=== PATIENT | male | born 1955 | race Caucasian/White ===

== ENCOUNTER 2018-08-27 01:31 | Observation (INO) ==
[2018-08-27] MEDS ORDERED: Sod Chloride 0.9% Inj 1,000 ML IV.SIG ONE (01:51)
--- NOTE | 2018-08-27 02:01 | ED ---
HPI General Chief complaint: Nausea/Vomiting/Diarrhea Stated complaint: Medical Time Seen by Provider: 08/27/18 01:44 Source: patient Mode of arrival: EMS Limitations: no limitations History of Present Illness HPI Narrative: 62-year-old male complains of generalized malaise and weakness, nausea vomiting diarrhea. Patient started having shaking chills, slurred speech , feeling hot and cold, generalized malaise and weakness tonight. Patient started having nausea vomiting diarrhea subsequently. Patient felt better tonight. Patient did not injure himself during the fall. Patient states that he had headache earlier but not now. Patient denies any visual change. Patient denies any neck pain. Patient denies any chest pain or shortness of breath. Patient states that he has mild dry cough. Patient denies abdominal pain. Patient denies any back pain. Patient denies any focal weakness or numbness of the extremity. Patient has history hypertension, diabetes, asthma. MD complaint: Reports nausea, vomiting and diarrhea Onset (ago): hour(s) Description of Vomiting: food contents and watery Description of Diarrhea: watery Associated Abdominal Pain: No Severity: moderate Relieving factors: none Exacerbating factors: none Associated symptoms: Reports cough, malaise and weakness Related Data Home Medications Medication Instructions Recorded Confirmed lisinopril 08/27/18 metformin 1,000 mg PO BID 08/27/18 08/27/18 Allergies Allergy/AdvReac Type Severity Reaction Status Date / Time aspirin Allergy Intermediate Wheezing Verified 08/27/18 01:38 Review of Systems ROS: all other systems reviewed are negative PMFSH Medical History Medical History Asthma (Acute) Back pain (Acute) Chronic hip pain after total replacement of left hip joint (Acute) Diabetes (Acute) HTN (hypertension) (Acute) High cholesterol (Acute) Social History Social History Substance History: No History of Abuse Second Hand Smoke Exposure: No Smoking Status: Never smoker How Often Do You Have a Drink Containing Alcohol: Monthly or less Recent Travel in [facility] within the Last 8 Weeks: No Recent Out of Country Travel within the Last 8 Weeks: No Immunization History Tetanus Immunization: Unsure Hx Influenza Vaccine This Season: Yes Exam Narrative Exam Narrative: GENERAL: Well-nourished, well-developed patient. SKIN: Focused skin assessment warm/dry. HEAD: Normocephalic. EYES: No scleral icterus. No injection or drainage. NECK: Supple, trachea midline. No JVD or lymphadenopathy. CARDIOVASCULAR: Mild tachycardia rate and rhythm without murmurs, gallops, or rubs. RESPIRATORY: Breath sounds equal bilaterally. No accessory muscle use. GASTROINTESTINAL: Abdomen soft, non-tender, nondistended. MUSCULOSKELETAL: No cyanosis, or edema. BACK: Nontender without obvious deformity. No CVA tenderness. Neurologic exam normal. Course Initial Documented Vital Signs Temperature 99.4 F 08/27/18 01:32 Pulse Rate 140 H 08/27/18 01:32 Respiratory Rate 28 H 08/27/18 01:32 Blood Pressure 123/75 08/27/18 01:32 Pulse Oximetry 93 L 08/27/18 01:32 Last Documented Vital Signs Temperature 98.2 F 08/27/18 01:45 Pulse Rate 121 H 08/27/18 03:00 Respiratory Rate 16 08/27/18 03:00 Blood Pressure 110/74 08/27/18 03:00 Pulse Oximetry 94 L 08/27/18 03:00 Medical Decision Making MDM Narrative Medical decision making narrative: 62-year-old male with nausea vomiting diarrhea and general malaise and weakness. Normal saline solution 1 L IV bolus. Zofran 4 mg IV. Medical Screen Exam Complete: Yes Emergency Medical Condition: Yes Differential Diagnosis Differential Diagnosis: Differential diagnosis including gastroenteritis, dehydration, electrolyte imbalance, sepsis. Lab Data Lab results reviewed: Yes I reviewed the patient's lab results. Result diagrams: 08/27/18 02:05 08/27/18 02:05 Lab Results 08/27/18 08/27/18 08/27/18 Range/Units 01:47 02:05 02:05 WBC 10.0 (4.0-11.0) th/mm3 RBC 4.94 (4.50-5.90) mil/mm3 Hgb 14.7 (13.0-17.0) gm/dL Hct 44.3 (39.0-51.0) % MCV 89.8 (80.0-100.0) fL MCH 29.8 (27.0-34.0) pg MCHC 33.2 (32.0-36.0) % RDW 13.4 (11.6-17.2) % Plt Count 199 (150-450) th/mm3 MPV 8.2 (7.0-11.0) fL Neut % (Auto) 95.6 H (16.0-70.0) % Lymph % (Auto) 3.1 L (9.0-44.0) % [place] % (Auto) 0.8 (0.0-8.0) % Eos % (Auto) 0.2 (0.0-4.0) % Baso % (Auto) 0.3 (0.0-2.0) % Neut # (Auto) 9.6 H (1.8-7.7) th/mm3 Lymph # (Auto) 0.3 L (1.0-4.8) th/mm3 [place] # (Auto) 0.1 (0.0-0.9) th/mm3 Eos # (Auto) 0.0 (0.0-0.4) th/mm3 Baso # (Auto) 0.0 (0.0-0.2) th/mm3 WBC Differential . Differential Comment Auto diff final Sodium 142 (136-145) meq/L Potassium 3.6 (3.5-5.1) meq/L Chloride 106 (98-107) meq/L Carbon Dioxide 23.8 (21.0-32.0) meq/L Anion Gap 12 (5-15) meq/L BUN 20 H (7-18) mg/dL Creatinine 1.33 H (0.60-1.30) mg/dL Estimated GFR 55 L (>89) mL/min POC Glucose 296 H (68-110) mg/dl Random Glucose 307 H (74-106) mg/dL Calcium 9.1 (8.5-10.1) mg/dL Total Bilirubin 1.0 (0.2-1.0) mg/dL AST 54 H (15-37) U/L ALT 57 (12-78) U/L Alkaline Phosphatase 82 (45-117) U/L Total Protein 7.5 (6.4-8.2) g/dL Albumin 3.8 (3.4-5.0) g/dL Lipase 102 (73-393) U/L 08/27/18 Range/Units 03:54 WBC (4.0-11.0) th/mm3 RBC (4.50-5.90) mil/mm3 Hgb (13.0-17.0) gm/dL Hct (39.0-51.0) % MCV (80.0-100.0) fL MCH (27.0-34.0) pg MCHC (32.0-36.0) % RDW (11.6-17.2) % Plt Count (150-450) th/mm3 MPV (7.0-11.0) fL Neut % (Auto) (16.0-70.0) % Lymph % (Auto) (9.0-44.0) % [place] % (Auto) (0.0-8.0) % Eos % (Auto) (0.0-4.0) % Baso % (Auto) (0.0-2.0) % Neut # (Auto) (1.8-7.7) th/mm3 Lymph # (Auto) (1.0-4.8) th/mm3 [place] # (Auto) (0.0-0.9) th/mm3 Eos # (Auto) (0.0-0.4) th/mm3 Baso # (Auto) (0.0-0.2) th/mm3 WBC Differential Differential Comment Sodium (136-145) meq/L Potassium (3.5-5.1) meq/L Chloride (98-107) meq/L Carbon Dioxide (21.0-32.0) meq/L Anion Gap (5-15) meq/L BUN (7-18) mg/dL Creatinine (0.60-1.30) mg/dL Estimated GFR (>89) mL/min POC Glucose 248 H (68-110) mg/dl Random Glucose (74-106) mg/dL Calcium (8.5-10.1) mg/dL Total Bilirubin (0.2-1.0) mg/dL AST (15-37) U/L ALT (12-78) U/L Alkaline Phosphatase (45-117) U/L Total Protein (6.4-8.2) g/dL Albumin (3.4-5.0) g/dL Lipase (73-393) U/L Imaging Data Attestation: I personally reviewed and interpreted this imaging study as follows : Radiologist's impression: Chest X-Ray 08/27/18 01:51 CONCLUSION: 1. Patchy right inferior perihilar opacities which may reflect developing airspace disease in the appropriate clinical setting.h Discharge Plan Discharge Disposition Patient Disposition: 30 Still Patient Discharge Details Diagnosis: Pneumonia, Gastroenteritis Physicians Team ED Provider: Lino Reyes Primary Care Provider: [facility]ician 's Attending Provider: Anastacia Singleton Discharge Interventions Interventions: Vital Signs Last Done: 08/27/18 03:00 Status ED Status: Admitted Patient
--- NOTE | 2018-08-27 02:18 | XR ---
EXAM DATE: 08/27/2018 1:51 AM EDT AGE/SEX: 62 years / Male INDICATIONS: Chills and nausea. CLINICAL DATA: This is the patient's initial encounter. Patient reports that signs and symptoms have been present for 1 day and indicates a pain score of 0/10. MEDICAL/SURGICAL HISTORY: None. None. COMPARISON: No prior exams available for comparison. FINDINGS: Patchy right inferior perihilar opacities. The cardiomediastinal contours are unremarkable. Osseous structures are intact. CONCLUSION: 1. Patchy right inferior perihilar opacities which may reflect developing airspace disease in the ap propriate clinical setting.h Electronically signed by: Luis Gomez MD 08/27/2018 2:17 AM EDT
[2018-08-27 02:29] LABS: Alanine Aminotransferase 57 U/L (12-78); Albumin 3.8 g/dL (3.4-5.0); Anion Gap 12 meq/L (5-15); Aspartate Aminotransferase 54 U/L (15-37); Baso % (Auto) 0.3 % (0.0-2.0); Blood Urea Nitrogen 20 mg/dL (7-18); Calcium 9.1 mg/dL (8.5-10.1); Carbon Dioxide 23.8 meq/L (21.0-32.0); Chloride 106 meq/L (98-107); Eos % (Auto) 0.2 % (0.0-4.0); Glomerular Filtration Rate 55 mL/min (>89); Glucose,Random 307 mg/dL (74-106); Hematocrit 44.3 % (39.0-51.0); Hemoglobin 14.7 gm/dL (13.0-17.0); Lipase 102 U/L (73-393); Lymph # (Auto) 0.3 th/mm3 (1.0-4.8); Lymph % (Auto) 3.1 % (9.0-44.0); Mean Corpuscular HGB Conc 33.2 % (32.0-36.0); Mean Corpuscular Hemoglobin 29.8 pg (27.0-34.0); Mean Corpuscular Volume 89.8 fL (80.0-100.0); Mean Platelet Volume 8.2 fL (7.0-11.0); Mono # (Auto) 0.1 th/mm3 (0.0-0.9); Mono % (Auto) 0.8 % (0.0-8.0); Neut # (Auto) 9.6 th/mm3 (1.8-7.7); Neut % (Auto) 95.6 % (16.0-70.0); Platelet Count 199 th/mm3 (150-450); Potassium 3.6 meq/L (3.5-5.1); Red Blood Count 4.94 mil/mm3 (4.50-5.90); Red Cell Distribution Width 13.4 % (11.6-17.2); Sodium 142 meq/L (136-145)
[2018-08-27 02:31] LABS: Alkaline Phosphatase 82 U/L (45-117); Total Protein 7.5 g/dL (6.4-8.2)
[2018-08-27] MEDS ORDERED: Azithromycin 250 MG Tablet PO ONE (02:35)
[2018-08-27] MEDS: Sod Chloride 0.9% Inj 1,000 ML IV.SIG SCH (02:58)
[2018-08-27] MEDS ORDERED: Dextrose 50% in Water 50 ML Vial IV.PUSH PRN (05:07)
[2018-08-27] MEDS ORDERED: Bisacodyl 10 MG Supp RECTAL PRN (05:12)
[2018-08-27] MEDS ORDERED: Acetaminophen 325 MG Tablet PO PRN (05:16)
[2018-08-27] MEDS: Enoxaparin Inj 40 MG/0.4 ML Syringe SQ SCH (05:31)
[2018-08-27] MEDS: Sod Chloride 0.9% Inj 1,000 ML IV.CONT SCH ×3 (05:31→22:23)
[2018-08-27] MEDS: Insulin NovoLOG Aspart Correctional Sugar Inj SQ SCH ×4 (08:44→22:24)
--- NOTE | 2018-08-27 14:11 | P.HP ---
History of Present Illness Primary Care Physician: [facility] Chief Complaint: weakness/cough/nausea/vomiting/diarrhea History of Present Illness: 62-year-old male with history of asthma, DM, HTN, HLD, chronic back pain, presents with acute onset 1 day history of malaise, weakness, cough, nausea/ vomiting, and diarrhea. Patient states he was in his normal state of health yesterday, when all of a sudden at 7:30 PM last night he started to develop significant malaise, fatigue, and uncontrollable chills. He then developed multiple episodes of nausea/vomiting and nonbloody diarrhea x5. Denies any significant abdominal pain. He also reports a recent dry mostly nonproductive cough, associated with shortness of breath and occasional wheezing. He states his took his temperature and it was as low as [id number]. Around midnight, patient agreed to come to the ER. Chest x-ray was significant for pneumonia. He was started on antibiotics. He is now seen in the observation unit, symptoms significantly improved however still feels weak. He does not feel ready for discharge at this time. He denies any other medical complaints including no rhinitis, odynophagia, chest pain, palpitations, or urinary complaints. Review of Systems All other systems reviewed negative except as stated in HPI PMFSH - History History Provided By: Patient - Medical History Medical History: Medical History (Last Reviewed 08/27/18 @ 16:57 by Harini March) Asthma Diabetes Back pain Chronic hip pain after total replacement of left hip joint HTN (hypertension) High cholesterol - Surgical History Surgical History: Surgical History (Last Updated 08/27/18 @ 16:58 by Harini March) History of rhinoplasty History of tonsillectomy History of total left hip arthroplasty - Family History Family History: Family History (Last Updated 08/27/18 @ 16:58 by Harini March) Mother Breast cancer Father CVA (cerebral vascular accident) - Social History I have reviewed the patient's Social History: Yes - Tobacco History Second Hand Smoke Exposure: No Tobacco Use In Past 30 Days: No Smoking Status: Never smoker (except occasional cigar twice a year) - Alcohol History How Often Do You Have a Drink Containing Alcohol: 2 to 4 times a month (1 beer twice a month) - Substance Use History Substance History: No History of Abuse - Travel History Recent Travel in the [facility] Within the Last 8 Weeks: No Recent Travel Out of the Country Within the Last 8 Weeks: No - Immunization History Tetanus Immunization: Unsure Hx Influenza Vaccine This Season: Yes Medications and Allergies Active Medications: Active Medications Acetaminophen (Tylenol) 650 mg PO Q4H PRN PRN Reason: Temp > 100.4 Albuterol (Duoneb Neb (Prn)) 1 ampul NEB Q2HR NEB PRN PRN Reason: SHORTNESS OF BREATH/WHEEZING Albuterol (Duoneb Neb (Anabella)) 1 ampul NEB Q6HR NEB ANABELLA Last Admin: 08/27/18 10:38 Dose: Not Given Bisacodyl (Dulcolax Supp) 10 mg RECTAL DAILY PRN PRN Reason: SEVERE CONSITIPATION Dextrose (D50w Vial) 50 ml IV.PUSH UNSCH PRN PRN Reason: PER HYPOGLYCEMIA PROTOCOL Enoxaparin Sodium (Lovenox Inj) 40 mg SQ Q24H ANABELLA Last Admin: 08/27/18 05:31 Dose: 40 mg Glucagon (Glucagon Inj) 1 mg OTHER PRN PRN PRN Reason: for Hypoglycemia Protocol Sodium Chloride (Ns Inj) 1,000 mls @ 0 mls/hr IV.SIG BOLUS ANABELLA Last Infusion: 08/27/18 03:39 Dose: Infused Sodium Chloride (Ns Inj) 1,000 mls @ 125 mls/hr IV.CONT .Q8H ANABELLA Last Infusion: 08/27/18 13:33 Dose: Infused Ceftriaxone Sodium 1,000 mg/ (Sodium Chloride) 100 mls @ 200 mls/hr IV.SIG Q24H ANABELLA Azithromycin 500 mg/ Sodium (Chloride) 250 mls @ 250 mls/hr IV.SIG Q24H ANABELLA Insulin Aspart (Novolog Insulin Correctional Sugar Inj) 0 unit SQ ACHS AND 3AM ANABELLA; Protocol Last Admin: 08/27/18 13:32 Dose: Not Given Ondansetron HCl (Zofran Inj) 4 mg IV.PUSH Q6H PRN PRN Reason: NAUSEA OR VOMITING Sennosides (Senokot) 17.2 mg PO Q12H PRN PRN Reason: Moderate Constipation Allergies Allergy/AdvReac Type Severity Reaction Status Date / Time aspirin Allergy Intermediate Wheezing Verified 08/27/18 01:38 Home Medications Medication Instructions Recorded Confirmed Type lisinopril 08/27/18 History metformin 1,000 mg PO BID 08/27/18 08/27/18 History Exam Vital signs: Vital Signs 08/27/18 01:32 08/27/18 01:45 08/27/18 02:02 Temperature 99.4 F 98.2 F Pulse Rate 140 H 133 H Respiratory Rate 28 H 20 Blood Pressure 123/75 117/72 Pulse Oximetry 93 L 94 L 94 L 08/27/18 02:03 08/27/18 03:00 08/27/18 05:44 Temperature Pulse Rate 122 H 121 H 114 H Respiratory Rate 16 Blood Pressure 110/74 100/62 Pulse Oximetry 94 L 08/27/18 07:12 08/27/18 11:55 Temperature 97.5 F L 98.3 F Pulse Rate 90 90 Respiratory Rate 20 20 Blood Pressure 99/62 L 103/66 Pulse Oximetry 96 98 Intake & Output 08/26/18 08/27/18 08/27/18 18:59 06:59 18:59 Intake Total 2099 Balance 2099 Weight 86.183 kg Intake: IV 2099 1000 / 1000 NS Inj 1,000 ML @ 125 mls/hr IV 1000 / 1000 .CONT .Q8H [facility] Rx#:[id number] NS Inj 1,000 ML @ Wide Open IV. 1999 SIG BOLUS [facility] Rx#:[id number] Rocephin Inj 1,000 MG In NS Inj 100 / 100 100 ML @ 200 mls/hr IV.SIG ONCE ONE Rx#:[id number] Oral 1000 / 1000 Narrative: GENERAL: Well-nourished, well-developed pleasant middle-age male patient in [facility]. Sitting upright on the side of bed. SKIN: Warm and dry. No rash. HEENT: Normocephalic. Atraumatic. Pupils equal and round. Mucous membranes pink and moist. NECK: Supple. Trachea midline. CARDIOVASCULAR: Mildly tachycardic, regular rhythm. No murmur appreciated. RESPIRATORY: No accessory muscle use. Clear to auscultation. Breath sounds equal bilaterally. GASTROINTESTINAL: Abdomen soft, non-tender, nondistended. Normoactive bowel sounds x4. MUSCULOSKELETAL: No obvious deformities. Extremities without clubbing, cyanosis , or edema. NEUROLOGICAL: Awake and alert. No obvious cranial nerve deficits. Motor grossly within normal limits. Moving all extremities spontaneously. Normal speech. PSYCHIATRIC: Appropriate mood and affect; insight and judgment normal. Results - Labs CBC & Chem 7: 08/27/18 02:05 08/27/18 02:05 Labs: Laboratory Results - last 24 hr 08/27/18 08/27/18 08/27/18 01:47 02:05 02:05 WBC 10.0 RBC 4.94 Hgb 14.7 Hct 44.3 MCV 89.8 MCH 29.8 MCHC 33.2 RDW 13.4 Plt Count 199 MPV 8.2 Neut % (Auto) 95.6 H Lymph % (Auto) 3.1 L [place] % (Auto) 0.8 Eos % (Auto) 0.2 Baso % (Auto) 0.3 Neut # (Auto) 9.6 H Lymph # (Auto) 0.3 L [place] # (Auto) 0.1 Eos # (Auto) 0.0 Baso # (Auto) 0.0 WBC Differential . Differential Comment Auto diff final Sodium 142 Potassium 3.6 Chloride 106 Carbon Dioxide 23.8 Anion Gap 12 BUN 20 H Creatinine 1.33 H Estimated GFR 55 L POC Glucose 296 H Random Glucose 307 H Lactic Acid Calcium 9.1 Total Bilirubin 1.0 AST 54 H ALT 57 Alkaline Phosphatase 82 Total Protein 7.5 Albumin 3.8 Lipase 102 08/27/18 08/27/18 08/27/18 03:54 05:05 08:37 WBC RBC Hgb Hct MCV MCH MCHC RDW Plt Count MPV Neut % (Auto) Lymph % (Auto) [place] % (Auto) Eos % (Auto) Baso % (Auto) Neut # (Auto) Lymph # (Auto) [place] # (Auto) Eos # (Auto) Baso # (Auto) WBC Differential Differential Comment Sodium Potassium Chloride Carbon Dioxide Anion Gap BUN Creatinine Estimated GFR POC Glucose 248 H 212 H Random Glucose Lactic Acid 2.7 H Calcium Total Bilirubin AST ALT Alkaline Phosphatase Total Protein Albumin Lipase 08/27/18 13:05 WBC RBC Hgb Hct MCV MCH MCHC RDW Plt Count MPV Neut % (Auto) Lymph % (Auto) [place] % (Auto) Eos % (Auto) Baso % (Auto) Neut # (Auto) Lymph # (Auto) [place] # (Auto) Eos # (Auto) Baso # (Auto) WBC Differential Differential Comment Sodium Potassium Chloride Carbon Dioxide Anion Gap BUN Creatinine Estimated GFR POC Glucose 149 H Random Glucose Lactic Acid Calcium Total Bilirubin AST ALT Alkaline Phosphatase Total Protein Albumin Lipase - Imaging Impressions Chest X-Ray 08/27/18 01:51 CONCLUSION: 1. Patchy right inferior perihilar opacities which may reflect developing airspace disease in the appropriate clinical setting.h Caprini VTE Risk Assessment Caprini VTE Risk Assessment: Moderate/High Risk (score >= 2) Caprini Risk Assessment Model: Point Value = 1 Point Value = 2 Point Value = 3 Point Value = 5 Age 41-60 Minor surgery BMI > 25 kg/m2 Swollen legs Varicose veins or History of unexplained or recurrent spontaneous Oral contraceptives or hormone replacement Sepsis (< 1 month) Serious lung disease, including pneumonia (< 1 month) Abnormal pulmonary function Acute myocardial infarction Congestive heart failure (< 1 month) History of inflammatory bowel disease Medical patient at bed rest Age 61-74 Arthroscopic surgery Major open surgery (> 45 min) Laparoscopic surgery (> 45 min) Malignancy Confined to bed (> 72 hours) Immobilizing plaster cast Central venous access Age >= 75 History of VTE Family history of VTE Factor V Leiden Prothrombin [id number] Lupus anticoagulant Anticardiolipin antibodies Elevated serum homocysteine Heparin-induced thrombocytopenia Other congenital or acquired thrombophilia Stroke (< 1 month) Elective arthroplasty Hip, pelvis, or leg fracture Acute spinal cord injury (< 1 month) Prophylaxis Regimen: Total Risk Factor Score Risk Level Prophylaxis Regimen 0-1 Low Early ambulation 2 Moderate Order ONE of the following: *Sequential Compression Device (SCD) *Heparin 5000 units SQ BID 3-4 Higher Order ONE of the following medications: *Heparin 5000 units SQ TID *Enoxaparin/Lovenox 40 mg SQ daily (WT < 150 kg, CrCl > 30 mL/min) *Enoxaparin/Lovenox 30 mg SQ daily (WT < 150 kg, CrCl > 10-29 mL/min) *Enoxaparin/Lovenox 30 mg SQ BID (WT < 150 kg, CrCl > 30 mL/min) AND/OR *Sequential Compression Device (SCD) 5 or more Highest Order ONE of the following medications: *Heparin 5000 units SQ TID (Preferred with Epidurals) *Enoxaparin/Lovenox 40 mg SQ daily (WT < 150 kg, CrCl > 30 mL/min) *Enoxaparin/Lovenox 30 mg SQ daily (WT < 150 kg, CrCl > 10-29 mL/min) *Enoxaparin/Lovenox 30 mg SQ BID (WT < 150 kg, CrCl > 30 mL/min) AND *Sequential Compression Device (SCD) Assessment and Plan - Plan 62-year-old male with history of asthma, DM, HTN, HLD, chronic back pain, presents with acute onset 1 day history of malaise, weakness, cough, nausea/ vomiting, and diarrhea. Sepsis with community-acquired pneumonia: Acute. Meets sepsis criteria with tachycardia and tachypnea, with suspected sourcepneumonia -CXR reviewed, shows patchy right inferior perihilar opacities -Tachycardic, HR 140, tachypneic RR 28, temp 99.4, WBC 10 K -Influenza negative -Blood cultures collected and pending -Sputum culture pending -Continue on antibiotics with IV Rocephin/azithromycin -Continue duo nebs every 6 hours Acute gastroenteritis: Suspect viral. Patient does not recall eating anything out of the ordinary or any sick contacts. -Given supportive treatment with IV fluid hydration, antiemetics as needed -Check stool studies if any recurrent diarrhea -Symptoms currently much improved, tolerating oral intake EZ: Creatinine 1.33, suspect secondary to dehydration with GI losses from vomiting/diarrhea -Giving IV fluid hydration -Avoid nephrotoxins -Repeat BMP in the morning Diabetes mellitus: Chronic -Holding patient's metformin for now -Monitor Accu-Cheks and cover with sliding scale insulin HTN/HLD: Chronic -Awaiting med rec to be updated, patient reportedly on lisinopril, unknown dose -Monitor BP, adjust antihypertensives as needed DVT prophylaxis: Lovenox Discharge Planning: Patient currently much improved, possible discharge tomorrow 08/28.
--- NOTE | 2018-08-27 15:27 | ECG ---
Date Performed: 08/27/2018 Time Performed: 01:47:08 PTAGE: 62 years EKG: SINUS TACHYCARDIA LEFT ANTERIOR FASCICULAR BLOCK LEFT VENTRICULAR HYPERTROPHY AND ST-T AVENDANO GE ABNORMAL ECG NO PREVIOUS TRACING DOCTOR: Lavern Goodson Interpretating Date/Time 08/27/2018 15:24:51
[2018-08-28] MEDS: Azithromycin Inj 500 MG in Sodium Chlor 0.9% Inj 250 ML IV.SIG SCH ×2 (01:58→03:57)
[2018-08-28] MEDS: Insulin NovoLOG Aspart Correctional Sugar Inj SQ SCH ×5 (03:58→23:16)
[2018-08-28] MEDS: Enoxaparin Inj 40 MG/0.4 ML Syringe SQ SCH (04:44)
[2018-08-28] MEDS: Sod Chloride 0.9% Inj 1,000 ML IV.CONT SCH ×3 (04:45→23:13)
--- NOTE | 2018-08-28 08:11 | P.PN ---
Subjective Interval history: Follow-up for sepsis with pneumonia, gastroenteritis. Patient reports overall feeling much better today. He does still have a cough, now mostly dry. Denies fevers or chills. Denies any chest pain or shortness of breath. He denies any further nausea/vomiting or diarrhea. He states he is now more constipated. He is tolerating oral intake. Patient wants to go home, however patient with 1/4 + blood cultures today, explained the results to the patient, and need for repeat blood cultures and continued admission for now. Patient verbalized understanding and agrees to continue to admission. Physical Exam Vital signs: Vital Signs 08/27/18 11:55 08/27/18 15:55 08/27/18 20:00 Temperature 98.3 F 99.2 F 99.2 F Pulse Rate 90 98 H 98 H Respiratory Rate 20 18 16 Blood Pressure 103/66 121/79 119/79 Pulse Oximetry 98 98 94 L 08/28/18 00:00 08/28/18 03:56 Temperature 99.4 F 99.2 F Pulse Rate 91 H 90 Respiratory Rate 16 16 Blood Pressure 126/78 141/83 H Pulse Oximetry 93 L 97 Intake & Output 08/27/18 08/28/18 08/28/18 18:59 06:59 18:59 Intake Total 1999 5990 / 5990 Output Total 680 / 680 Balance 1999 5310 / 5310 Intake: IV 1000 / 1000 2350 / 2350 NS Inj 1,000 ML @ 125 mls/hr IV 1000 / 1000 1999 .CONT .Q8H JEANNE Rx#:[id number] Azithromycin Inj 500 MG In NS 250 / 250 Inj 250 ML @ 250 mls/hr IV.SIG Q24H JEANNE Rx#:[id number] Rocephin Inj 1,000 MG In NS Inj 100 / 100 100 ML @ 200 mls/hr IV.SIG Q24H JEANNE Rx#:[id number] Oral 1000 / 1000 640 / 640 Other 3000 / 3000 Output: Urine 680 / 680 Other: Other Intake Source Saline Solution # Voids 3 Date of Last Bowel Movement 08/26/18 Narrative: GENERAL: Well-nourished, well-developed pleasant middle-age male patient in [facility]. Sitting upright on the side of bed. SKIN: Warm and dry. No rash. HEENT: Normocephalic. Atraumatic. Pupils equal and round. Mucous membranes pink and moist. CARDIOVASCULAR: Mildly tachycardic, regular rhythm. No murmur appreciated. RESPIRATORY: No accessory muscle use. Clear to auscultation. Breath sounds equal bilaterally. GASTROINTESTINAL: Abdomen soft, non-tender, nondistended. Normoactive bowel sounds x4. MUSCULOSKELETAL: No obvious deformities. Extremities without clubbing, cyanosis , or edema. NEUROLOGICAL: Awake and alert. No obvious cranial nerve deficits. Motor grossly within normal limits. Moving all extremities spontaneously. Normal speech. PSYCHIATRIC: Appropriate mood and affect; insight and judgment normal. Results - Labs CBC & Chem 7: 08/28/18 08:30 08/28/18 08:30 Laboratory Results - last 24 hr 08/27/18 08/27/18 08/27/18 08:37 13:05 17:53 POC Glucose 212 H 149 H 157 H 08/27/18 20:49 POC Glucose 222 H Microbiology 08/27/18 04:55 Blood - Peripheral Anaerobic Blood Culture - Preliminary gram negative rods 08/27/18 13:45 Nasal Wash Influenza Types A,B Antigen - Final Negative for FLU A and B antigen Infection due to influenza A or B cannot be ruled out since the antigen present in the sample may be below the detection limit of the test. - Imaging Chest X-Ray 08/27/18 01:51 CONCLUSION: 1. Patchy right inferior perihilar opacities which may reflect developing airspace disease in the appropriate clinical setting.h Assessment and Plan - Plan 62-year-old male with history of asthma, DM, HTN, HLD, chronic back pain, presents with acute onset 1 day history of malaise, weakness, cough, nausea/ vomiting, and diarrhea. Sepsis with community-acquired pneumonia: Acute. Meets sepsis criteria with tachycardia and tachypnea, with suspected sourcepneumonia -CXR reviewed, shows patchy right inferior perihilar opacities -Tachycardic, HR 140, tachypneic RR 28, temp 99.4, WBC 10 K -Influenza negative -Sputum culture with heavy growth normal respiratory mary -Continue on antibiotics with IV Rocephin/azithromycin -Continue duo nebs every 6 hours -Symptoms much improved, sepsis resolved, afebrile +Blood Culture: Patient with 1 out of 4 blood cultures positive for gram- negative rods -Possible contamination, will repeat blood cultures stat today -Continue on antibiotics as above -Continue to monitor blood cultures, infectious disease consult if needed Acute gastroenteritis: Suspect viral. Patient does not recall eating anything out of the ordinary or any sick contacts. -Given supportive treatment with IV fluid hydration, antiemetics as needed -Check stool studies if any recurrent diarrhea -Symptoms currently resolved, tolerating oral intake EZ: Creatinine 1.33, suspect secondary to dehydration with GI losses from vomiting/diarrhea -Giving IV fluid hydration -Avoid nephrotoxins -Repeat BMP shows improvement with creatinine 0.87 today, resolved Diabetes mellitus: Chronic -Holding patient's metformin for now -Monitor Accu-Cheks and cover with sliding scale insulin, increase to medium dose -Diabetic diet HTN/HLD: Chronic -Awaiting med rec to be updated, patient reportedly on lisinopril, unknown dose -Monitor BP, adjust antihypertensives as needed DVT prophylaxis: Lovenox Discharge Planning: Patient symptoms much improved, however had 1/4 positive blood cultures today. Repeating blood cultures, and if negative and afebrile will plan for discharge tomorrow 08/29.
[2018-08-28 08:52] LABS: Baso % (Auto) 0.5 % (0.0-2.0); Eos # (Auto) 0.2 th/mm3 (0.0-0.4); Eos % (Auto) 1.7 % (0.0-4.0); Hematocrit 36.6 % (39.0-51.0); Hemoglobin 12.4 gm/dL (13.0-17.0); Lymph # (Auto) 0.9 th/mm3 (1.0-4.8); Lymph % (Auto) 10.2 % (9.0-44.0); Mean Corpuscular HGB Conc 33.8 % (32.0-36.0); Mean Corpuscular Hemoglobin 30.3 pg (27.0-34.0); Mean Corpuscular Volume 89.5 fL (80.0-100.0); Mean Platelet Volume 7.8 fL (7.0-11.0); Mono # (Auto) 0.5 th/mm3 (0.0-0.9); Mono % (Auto) 5.7 % (0.0-8.0); Neut # (Auto) 7.3 th/mm3 (1.8-7.7); Neut % (Auto) 81.9 % (16.0-70.0); Platelet Count 159 th/mm3 (150-450); Red Blood Count 4.09 mil/mm3 (4.50-5.90); Red Cell Distribution Width 13.6 % (11.6-17.2); White Blood Count 8.9 th/mm3 (4.0-11.0)
[2018-08-28 09:25] LABS: Alanine Aminotransferase 59 U/L (12-78); Albumin 2.8 g/dL (3.4-5.0); Alkaline Phosphatase 58 U/L (45-117); Anion Gap 7 meq/L (5-15); Aspartate Aminotransferase 39 U/L (15-37); Blood Urea Nitrogen 12 mg/dL (7-18); Carbon Dioxide 24.6 meq/L (21.0-32.0); Chloride 110 meq/L (98-107); Glomerular Filtration Rate Greater Than 89 mL/min (>89); Glucose,Random 201 mg/dL (74-106); Potassium 3.7 meq/L (3.5-5.1); Sodium 142 meq/L (136-145); Total Protein 6.4 g/dL (6.4-8.2)
[2018-08-28] MEDS: Sod Chloride 0.9% Inj 1,000 ML IV.SIG SCH (20:34)
[2018-08-29] MEDS: Azithromycin Inj 500 MG in Sodium Chlor 0.9% Inj 250 ML IV.SIG SCH (04:00)
[2018-08-29] MEDS: Insulin NovoLOG Aspart Correctional Sugar Inj SQ SCH ×4 (04:09→17:52)
[2018-08-29] MEDS: Sod Chloride 0.9% Inj 1,000 ML IV.SIG SCH ×2 (05:31→05:33)
[2018-08-29] MEDS: Sod Chloride 0.9% Inj 1,000 ML IV.CONT SCH ×2 (05:35→12:18)
[2018-08-29] MEDS: Enoxaparin Inj 40 MG/0.4 ML Syringe SQ SCH (05:37)
[2018-08-29] MEDS: Lisinopril 10 MG Tablet PO SCH (08:56)
--- NOTE | 2018-08-29 16:42 | P.PN ---
Subjective Interval history: Follow-up for pneumonia. Patient reports overall feeling much better today. He denies any fevers or chills overnight. States his cough has improved. Denies any abdominal pain, nausea/vomiting, or diarrhea. He is tolerating oral intake. He has no new medical complaints at this time. Physical Exam Vital signs: Vital Signs 08/28/18 20:00 08/29/18 01:04 08/29/18 04:00 Temperature 98.8 F 98.2 F 98.6 F Pulse Rate 81 76 88 Respiratory Rate 16 16 16 Blood Pressure 169/98 H 142/93 H 159/98 H Pulse Oximetry 98 95 96 08/29/18 08:00 08/29/18 12:00 Temperature 98.6 F 98.7 F Pulse Rate 83 86 Respiratory Rate 15 16 Blood Pressure 178/106 H 182/107 H Pulse Oximetry 96 96 Intake & Output 08/28/18 08/29/18 08/29/18 18:59 06:59 18:59 Intake Total 1000 / 1000 1250 / 1250 1999 Output Total 1225 / 1225 Balance 1000 / 1000 25 / 25 1999 Intake: IV 1000 / 1000 1250 / 1250 1999 NS Inj 1,000 ML @ 125 mls/hr IV 1000 / 1000 1999 .CONT .Q8H JEANNE Rx#:[id number] Azithromycin Inj 500 MG In NS 250 / 250 Inj 250 ML @ 250 mls/hr IV.SIG Q24H JEANNE Rx#:[id number] NS Inj 1,000 ML @ Wide Open IV. 1000 / 1000 SIG BOLUS JEANNE Rx#:[id number] Output: Urine 1225 / 1225 Other: # Voids 1 1 Date of Last Bowel Movement 08/26/18 08/26/18 Narrative: GENERAL: Well-nourished, well-developed pleasant middle-age male patient in [facility]. SKIN: Warm and dry. No rash. HEENT: Normocephalic. Atraumatic. Pupils equal and round. Mucous membranes pink and moist. CARDIOVASCULAR: Mildly tachycardic, regular rhythm. No murmur appreciated. RESPIRATORY: No accessory muscle use. Clear to auscultation. Breath sounds equal bilaterally. GASTROINTESTINAL: Abdomen soft, non-tender, nondistended. Normoactive bowel sounds x4. MUSCULOSKELETAL: No obvious deformities. Extremities without clubbing, cyanosis , or edema. NEUROLOGICAL: Awake and alert. No obvious cranial nerve deficits. Motor grossly within normal limits. Moving all extremities spontaneously. Normal speech. PSYCHIATRIC: Appropriate mood and affect; insight and judgment normal. Results - Labs CBC & Chem 7: 08/28/18 08:30 08/28/18 08:30 Laboratory Results - last 24 hr 08/28/18 08/28/18 08/28/18 17:01 21:53 23:12 POC Glucose 200 H 235 H 203 H 08/29/18 08/29/18 08/29/18 04:04 07:52 12:18 POC Glucose 218 H 190 H 176 H Microbiology 08/28/18 08:30 Blood - Peripheral Aerobic Blood Culture - Preliminary No growth in 1 day 08/28/18 08:30 Blood - Peripheral Anaerobic Blood Culture - Preliminary No growth in 1 day 08/28/18 08:24 Blood - Peripheral Aerobic Blood Culture - Preliminary No growth in 1 day 08/28/18 08:24 Blood - Peripheral Anaerobic Blood Culture - Preliminary No growth in 1 day 08/27/18 05:05 Blood - Peripheral Aerobic Blood Culture - Preliminary No growth in 2 days 08/27/18 05:05 Blood - Peripheral Anaerobic Blood Culture - Preliminary No growth in 2 days 08/27/18 04:55 Blood - Peripheral Aerobic Blood Culture - Preliminary No growth in 2 days 08/27/18 04:55 Blood - Peripheral Anaerobic Blood Culture - Final Enterobacter cloacae 08/27/18 13:45 Sputum - Expectorated Sputum Gram Stain - Final 08/27/18 13:45 Sputum - Expectorated Sputum Sputum Culture - Final Heavy growth normal respiratory mary - Imaging Chest X-Ray 08/27/18 01:51 CONCLUSION: 1. Patchy right inferior perihilar opacities which may reflect developing airspace disease in the appropriate clinical setting.h Assessment and Plan - Plan 62-year-old male with history of asthma, DM, HTN, HLD, chronic back pain, presents with acute onset 1 day history of malaise, weakness, cough, nausea/ vomiting, and diarrhea. Sepsis with community-acquired pneumonia: Acute. Meets sepsis criteria with tachycardia and tachypnea, with suspected sourcepneumonia -CXR reviewed, shows patchy right inferior perihilar opacities -Tachycardic, HR 140, tachypneic RR 28, temp 99.4, WBC 10 K -Influenza negative -Sputum culture with heavy growth normal respiratory mary -Continue on antibiotics with IV Rocephin/azithromycin -Continue duo nebs every 6 hours -Symptoms much improved, sepsis resolved, afebrile +Blood Culture: Patient with 1 out of 4 blood cultures positive for gram- negative rods -Possible contamination, repeat blood cultures collected with no growth to date -Continue on antibiotics as above -Final blood culture with 1/4 positive for Enterobacter cloacae -Consult infectious disease for further recommendations Acute gastroenteritis: Suspect viral. Patient does not recall eating anything out of the ordinary or any sick contacts. -Given supportive treatment with IV fluid hydration, antiemetics as needed -Check stool studies if any recurrent diarrhea, however diarrhea resolved -Symptoms currently resolved, tolerating oral intake EZ: Creatinine 1.33, suspect secondary to dehydration with GI losses from vomiting/diarrhea -Giving IV fluid hydration -Avoid nephrotoxins -Repeat BMP shows improvement with creatinine 0.87, resolved Diabetes mellitus: Chronic -Holding patient's metformin for now -Monitor Accu-Cheks and cover with sliding scale insulin, increase to medium dose -Diabetic diet HTN/HLD: Chronic -Continue patient's lisinopril 10mg daily -Monitor BP, adjust antihypertensives as needed Chronic back pain: Chronic -Continue patient's Flexeril as needed -[place] prn DVT prophylaxis: Lovenox Discharge Planning: Patient symptoms much improved, however had 1/4 positive blood cultures. Await further recommendations from ID prior to discharge.
--- NOTE | 2018-08-29 18:17 | P.CONID ---
History of Present Illness Service: ID Consult date: 08/29/18 Requesting Physician: Harini March Reason for Consult: enterocoaal bactremia Primary Care Provider: Physician [facility] Chief Complaint: weakness/cough/nausea/vomiting/diarrhea History of Present Illness: 62 yo diabetic male developped fever shaking chills, suddent onset diarrhea, nausea and vomiting 2 days ago and presented to ER with above smx He denies disuria, but acknowledges freuent urination at night and some difficulty voiding in the last few months On admission hypothermic, followed by low grade temps Blood clx grew Enterobacter in 1/4 cultures, choi S CXR showed pachy right inferior perihilar opacities which may reflect developing airspace disease + leukocytosis (ANC 9600, L shift present) Pt is on Ceftriaxone , Azithromycin Review of Systems All other systems reviewed negative except as stated in HPI PMFSH - History History Provided By: Patient - Medical History Medical History: Medical History (Last Reviewed 08/29/18 @ 18:10 by Janell Sarah MD) Asthma Diabetes Back pain Chronic hip pain after total replacement of left hip joint HTN (hypertension) High cholesterol - Surgical History Surgical History: Surgical History (Last Reviewed 08/29/18 @ 18:10 by Janell Sarah MD) History of rhinoplasty History of tonsillectomy History of total left hip arthroplasty - Family History Family History: Family History (Last Reviewed 08/29/18 @ 18:10 by Janell Sarah MD) Mother Breast cancer Father CVA (cerebral vascular accident) - Social History I have reviewed the patient's Social History: Yes - Tobacco History Second Hand Smoke Exposure: No Tobacco Use In Past 30 Days: No Smoking Status: Never smoker (except occasional cigar twice a year) - Alcohol History How Often Do You Have a Drink Containing Alcohol: 2 to 4 times a month (1 beer twice a month) - Substance Use History Substance History: No History of Abuse - Travel History Recent Travel in the [place] Within the Last 8 Weeks: No Recent Travel Out of the Country Within the Last 8 Weeks: No - Immunization History Tetanus Immunization: Unsure Hx Influenza Vaccine This Season: Yes Medications and Allergies Active Medications: Active Medications Acetaminophen (Tylenol) 650 mg PO Q4H PRN PRN Reason: headache/fever/pain1-4 Hydrocodone Bitart/Acetaminophen ([place] 5/325) 1 tab PO Q6H PRN PRN Reason: pain scale 5 to 10 Albuterol (Duoneb Neb (Prn)) 1 ampul NEB Q2HR NEB PRN PRN Reason: SHORTNESS OF BREATH/WHEEZING Albuterol (Duoneb Neb (Anabella)) 1 ampul NEB Q6HR NEB ANABELLA Last Admin: 08/29/18 08:05 Dose: Not Given Atorvastatin Calcium (Lipitor) 80 mg PO DAILY ANABELLA Last Admin: 08/29/18 08:56 Dose: 80 mg Bisacodyl (Dulcolax Supp) 10 mg RECTAL DAILY PRN PRN Reason: SEVERE CONSITIPATION Cyclobenzaprine HCl (Flexeril) 10 mg PO BID PRN PRN Reason: muscle spasms Dextrose (D50w Vial) 50 ml IV.PUSH UNSCH PRN PRN Reason: PER HYPOGLYCEMIA PROTOCOL Enoxaparin Sodium (Lovenox Inj) 40 mg SQ Q24H ANABELLA Last Admin: 08/29/18 05:37 Dose: 40 mg Glucagon (Glucagon Inj) 1 mg OTHER PRN PRN PRN Reason: for Hypoglycemia Protocol Sodium Chloride (Ns Inj) 1,000 mls @ 0 mls/hr IV.SIG BOLUS [facility] Last Infusion: 08/29/18 01:32 Dose: Infused Sodium Chloride (Ns Inj) 1,000 mls @ 125 mls/hr IV.CONT .Q8H ANABELLA Last Infusion: 08/29/18 12:18 Dose: Infused Ceftriaxone Sodium 1,000 mg/ (Sodium Chloride) 100 mls @ 200 mls/hr IV.SIG Q24H ANABELLA Last Infusion: 08/29/18 18:01 Dose: Infused Azithromycin 500 mg/ Sodium (Chloride) 250 mls @ 250 mls/hr IV.SIG Q24H ANABELLA Last Infusion: 08/29/18 05:28 Dose: Infused Insulin Aspart (Novolog Insulin [employer] Sugar Inj) 0 unit SQ ACHS AND 3AM ANABELLA; Protocol Last Admin: 08/29/18 17:52 Dose: Not Given Latanoprost (Xalatan 0.005% Opth Drops) 1 drop EACH EYE HS [facility] Lisinopril (Prinivil) 10 mg PO DAILY [facility] Last Admin: 08/29/18 08:56 Dose: 10 mg Ondansetron HCl (Zofran Inj) 4 mg IV.PUSH Q6H PRN PRN Reason: NAUSEA OR VOMITING Sennosides (Senokot) 17.2 mg PO Q12H PRN PRN Reason: Moderate Constipation Allergies Allergy/AdvReac Type Severity Reaction Status Date / Time aspirin Allergy Intermediate Wheezing Verified 08/27/18 01:38 Home Medications Medication Instructions Recorded Confirmed Type lisinopril 10 mg PO DAILY 08/27/18 08/28/18 History metformin 2 g PO DAILY 08/27/18 08/28/18 History atorvastatin 80 mg PO DAILY 08/28/18 08/28/18 History latanoprost 1 drp OPHTHALMIC (EYE) QPM 08/28/18 08/28/18 History Exam Vital signs: Vital Signs 08/28/18 20:00 08/29/18 01:04 08/29/18 04:00 Temperature 98.8 F 98.2 F 98.6 F Pulse Rate 81 76 88 Respiratory Rate 16 16 16 Blood Pressure 169/98 H 142/93 H 159/98 H Pulse Oximetry 98 95 96 08/29/18 08:00 08/29/18 12:00 08/29/18 16:00 Temperature 98.6 F 98.7 F 98.2 F Pulse Rate 83 86 92 H Respiratory Rate 15 16 16 Blood Pressure 178/106 H 182/107 H 181/116 H Pulse Oximetry 96 96 93 L Intake & Output 08/28/18 08/29/18 08/29/18 18:59 06:59 18:59 Intake Total 1000 / 1000 1250 / 1250 2099 / 2100 Output Total 1225 / 1225 Balance 1000 / 1000 25 / 25 2099 / 2099 Intake: IV 1000 / 1000 1250 / 1250 2099 / 2100 NS Inj 1,000 ML @ 125 mls/hr IV 1000 / 1000 2000 / 1999 .CONT .Q8H ANABELLA Rx#:[id number] Azithromycin Inj 500 MG In NS 250 / 250 Inj 250 ML @ 250 mls/hr IV.SIG Q24H ANABELLA Rx#:[id number] NS Inj 1,000 ML @ Wide Open IV. 1000 / 1000 SIG BOLUS ANABELLA Rx#:[id number] Rocephin Inj 1,000 MG In NS Inj 100 / 100 100 ML @ 200 mls/hr IV.SIG Q24H ANABELLA Rx#:[id number] Output: Urine 1225 / 1225 Other: # Voids 1 1 Date of Last Bowel Movement 08/26/18 08/26/18 - Constitutional no acute distress, obese, cooperative - Routine HEENT Exam Head: Present: normocephalic, atraumatic Eye: Present: EOMI, PERRL. Absent: conjunctival icterus, scleral injection ENT: Present: mucous membranes moist, oropharynx clear - Routine Neck Exam Present: supple, full ROM - Routine Respiratory Exam Present: CTA bilaterally. Absent: accessory muscle use, decreased breath sounds , respiratory distress, rhonchi, wheezes - Routine Cardiovascular Exam Present: RRR, S1, S2. Absent: murmur, gallop, rubs - Routine Abdominal Exam Present: soft, normoactive bowel sounds. Absent: tenderness, distended - Routine Extremities Exam Present: full ROM. Absent: cyanosis, clubbing, edema - Routine Back/Spine/Pelvis Exam Back/Spine: Absent: CVA tenderness, paraspinal tenderness, vertebral tenderness - Routine Skin Exam Present: intact, dry, warm. Absent: lesions, rash - Routine Neurological Exam Present: alert, oriented X3, CN II-XII intact, moving all extremities, vision grossly intact, hearing grossly intact, normal speech - Routine Psychiatric Exam Present: normal affect, normal thought process, cooperative Results - Labs CBC & Chem 7: 08/28/18 08:30 08/28/18 08:30 Labs: Laboratory Results - last 24 hr 08/28/18 08/28/18 08/29/18 21:53 23:12 04:04 POC Glucose 235 H 203 H 218 H 08/29/18 08/29/18 08/29/18 07:52 12:18 17:51 POC Glucose 190 H 176 H 131 H - Imaging Chest X-Ray 08/27/18 01:51 CONCLUSION: 1. Patchy right inferior perihilar opacities which may reflect developing airspace disease in the appropriate clinical setting.h Assessment and Plan - Plan Low grade Enterobacter bacteremia in settings of clinical symptomsd and findings cw sepsis (pt with fever, shking chills, lactic acidosis on presentation) Gram negative bacteremia is not a contaminant and usually requires establishement of source. Typically GI/ Ptchy infiltrate, thouhg no typical presentation of PNA Rec's: cont current abx dc azithro after 5 days UA, C+S if indicated CT A/P if UA not cw infection to r/o intraabd source
[2018-08-29 18:23] LABS: Bilirubin,Urine Negative (Negative); Clarity,Urine Clear (Clear); Color,Urine Straw (Yellw/Straw); Glucose,Urine (UA) 50 mg/dL (Negative); Leukocyte Esterase,Urine Negative (Negative); Nitrite,Urine Negative (Negative); Specific Gravity,Urine 1.006 (1.002-1.035)
[2018-08-29] MEDS ORDERED: Latanoprost 0.005% Opth Drops 2.5 ML Bottle EACH EYE SCH (21:00)
[2018-08-30] MEDS: Insulin NovoLOG Aspart Correctional Sugar Inj SQ SCH ×5 (00:10→17:00)
[2018-08-30] MEDS: Sod Chloride 0.9% Inj 1,000 ML IV.CONT SCH ×4 (00:11→13:00)
[2018-08-30] MEDS: Azithromycin Inj 500 MG in Sodium Chlor 0.9% Inj 250 ML IV.SIG SCH (02:40)
[2018-08-30] MEDS: Enoxaparin Inj 40 MG/0.4 ML Syringe SQ SCH (04:35)
[2018-08-30 07:32] VITALS: RESP 16; TEMP 98.1
[2018-08-30] MEDS: Lisinopril 10 MG Tablet PO SCH (08:26)
[2018-08-30] MEDS ORDERED: Diatrizoate Meglum/Diatrizoate Sod Liq 9 ML UDC PO ONE (09:00)
--- NOTE | 2018-08-30 09:18 | P.PN ---
Subjective Interval history: Follow up for pneumonia, Enterobacter bacteremia. Patient reports feeling better again today. Denies any fevers or chills overnight. His cough has improved, now nonproductive. Denies any abdominal pain, nausea/vomiting, or diarrhea. He wants to go home. He is concerned about being able to afford any additional tests. Had a long discussion with patient's son over the phone while at bedside with the patient, agrees to CT abdomen today. No new medical complaints today. Physical Exam Vital signs: Vital Signs 08/29/18 12:00 08/29/18 16:00 08/29/18 19:32 Temperature 98.7 F 98.2 F 99.3 F Pulse Rate 86 92 H 97 H Respiratory Rate 16 16 18 Blood Pressure 182/107 H 181/116 H 151/97 H Pulse Oximetry 96 93 L 96 08/29/18 23:05 08/30/18 00:56 08/30/18 04:00 Temperature 98.6 F 97.7 F Pulse Rate 79 75 73 Respiratory Rate 18 18 18 Blood Pressure 176/98 H 146/83 H 137/89 Pulse Oximetry 98 95 96 08/30/18 07:29 Temperature 98.1 F Pulse Rate 78 Respiratory Rate 16 Blood Pressure 142/86 H Pulse Oximetry 95 Intake & Output 08/29/18 08/30/18 08/30/18 18:59 06:59 18:59 Intake Total 2100 / 2100 650 / 650 1150 / 1150 Balance 2100 / 2100 650 / 650 1150 / 1150 Intake: IV 2100 / 2100 650 / 650 NS Inj 1,000 ML @ 125 mls/hr IV 2000 / 2000 300 / 300 .CONT .Q8H JEANNE Rx#:[id number] Azithromycin Inj 500 MG In NS 250 / 250 Inj 250 ML @ 250 mls/hr IV.SIG Q24H JEANNE Rx#:[id number] Rocephin Inj 1,000 MG In NS Inj 100 / 100 100 / 100 100 ML @ 200 mls/hr IV.SIG Q24H JEANNE Rx#:[id number] Oral 120 / 120 Other 1030 / 1030 Other: Other Intake Source Saline Solution # Voids 1 3 Narrative: GENERAL: Well-nourished, well-developed pleasant middle-age male patient in [facility]. SKIN: Warm and dry. No rash. HEENT: Normocephalic. Atraumatic. Pupils equal and round. Mucous membranes pink and moist. CARDIOVASCULAR: Mildly tachycardic, regular rhythm. No murmur appreciated. RESPIRATORY: No accessory muscle use. Clear to auscultation. Breath sounds equal bilaterally. GASTROINTESTINAL: Abdomen soft, non-tender, nondistended. Normoactive bowel sounds x4. MUSCULOSKELETAL: No obvious deformities. Extremities without clubbing, cyanosis , or edema. NEUROLOGICAL: Awake and alert. No obvious cranial nerve deficits. Motor grossly within normal limits. Moving all extremities spontaneously. Normal speech. PSYCHIATRIC: Appropriate mood and affect; insight and judgment normal. Results - Labs CBC & Chem 7: 08/28/18 08:30 08/28/18 08:30 Laboratory Results - last 24 hr 08/29/18 08/29/18 08/29/18 12:18 17:51 18:10 POC Glucose 176 H 131 H Urine Color Straw Urine Clarity Clear Urine pH 7.0 Ur Specific [place] 1.006 Urine Protein Negative Urine Glucose (UA) 50 Urine Ketones Negative Urine Occult Blood Negative Urine Nitrate Negative Urine Bilirubin Negative Urine Urobilinogen Less than 2 Ur Leukocyte Esterase Negative Urine WBC 1 Micro UA Comment Culture not ind Ur Microscopic Review Not Reportable Urine Culture Comments Culture not ind 08/29/18 08/30/18 08/30/18 22:38 02:37 07:46 POC Glucose 182 H 203 H 174 H Urine Color Urine Clarity Urine pH Ur Specific [place] Urine Protein Urine Glucose (UA) Urine Ketones Urine Occult Blood Urine Nitrate Urine Bilirubin Urine Urobilinogen Ur Leukocyte Esterase Urine WBC Micro UA Comment Ur Microscopic Review Urine Culture Comments Microbiology 08/28/18 08:30 Blood - Peripheral Aerobic Blood Culture - Preliminary No growth in 1 day 08/28/18 08:30 Blood - Peripheral Anaerobic Blood Culture - Preliminary No growth in 1 day 08/28/18 08:24 Blood - Peripheral Aerobic Blood Culture - Preliminary No growth in 1 day 08/28/18 08:24 Blood - Peripheral Anaerobic Blood Culture - Preliminary No growth in 1 day 08/27/18 05:05 Blood - Peripheral Aerobic Blood Culture - Preliminary No growth in 2 days 08/27/18 05:05 Blood - Peripheral Anaerobic Blood Culture - Preliminary No growth in 2 days 08/27/18 04:55 Blood - Peripheral Aerobic Blood Culture - Preliminary No growth in 2 days 08/27/18 04:55 Blood - Peripheral Anaerobic Blood Culture - Final Enterobacter cloacae 08/27/18 13:45 Sputum - Expectorated Sputum Gram Stain - Final 08/27/18 13:45 Sputum - Expectorated Sputum Sputum Culture - Final Heavy growth normal respiratory mary - Imaging Chest X-Ray 08/27/18 01:51 CONCLUSION: 1. Patchy right inferior perihilar opacities which may reflect developing airspace disease in the appropriate clinical setting.h Assessment and Plan - Plan 62-year-old male with history of asthma, DM, HTN, HLD, chronic back pain, presents with acute onset 1 day history of malaise, weakness, cough, nausea/ vomiting, and diarrhea. Sepsis with community-acquired pneumonia: Acute. Meets sepsis criteria with tachycardia and tachypnea, with suspected sourcepneumonia -CXR reviewed, shows patchy right inferior perihilar opacities -Tachycardic, HR 140, tachypneic RR 28, temp 99.4, WBC 10 K -Influenza negative -Sputum culture with heavy growth normal respiratory mary -Continue on antibiotics with IV Rocephin/azithromycin -Continue duo nebs every 6 hours -Symptoms much improved, sepsis resolved, afebrile + Enterobacter bacteremia: Patient with initial 1 out of 4 blood cultures positive for Enterobacter cloacae, pansensitive -Repeat blood cultures collected with no growth to date -Continue on antibiotics as above -Final blood culture with 1/4 positive for Enterobacter cloacae -Consult infectious disease, unclear source, UA negative, ordered CT abd/ pelvis Acute gastroenteritis: Suspect viral. Patient does not recall eating anything out of the ordinary or any sick contacts. -Given supportive treatment with IV fluid hydration, antiemetics as needed -Check stool studies if any recurrent diarrhea, however diarrhea resolved -Symptoms currently resolved, tolerating oral intake EZ: Creatinine 1.33, suspect secondary to dehydration with GI losses from vomiting/diarrhea -Giving IV fluid hydration -Avoid nephrotoxins -Repeat BMP shows improvement with creatinine 0.87, resolved Diabetes mellitus: Chronic -Holding patient's metformin for now -Monitor Accu-Cheks and cover with sliding scale insulin, increase to medium dose -Diabetic diet HTN/HLD: Chronic -Continue patient's lisinopril 10mg daily -Monitor BP, adjust antihypertensives as needed Chronic back pain: Chronic -Continue patient's Flexeril as needed -[place] prn DVT prophylaxis: Lovenox Discharge Planning: Patient symptoms much improved, however work up in progress for Enterobacter bacteremia. Await CT abdomen/pelvis. Await further recommendations from ID prior to discharge.
[2018-08-30 11:40] VITALS: PULSE 80
--- NOTE | 2018-08-30 14:27 | CT ---
EXAM DATE: 08/30/2018 1:20 PM EDT AGE/SEX: 62 years / Male INDICATIONS: Nausea, Vomiting, Diarrhea CLINICAL DATA: This is the patient's initial encounter. Patient reports that signs and symptoms have been present for 2 days and indicates a pain score of 0/10. MEDICAL/SURGICAL HISTORY: Asthma. Diabetes. Hypertension. Tonsillectomy. Rhinoplasty, Left hi p arthroplasty ORAL CONTRAST: Prescribed oral contrast ingested. RADIATION DOSE: 10.47 CTDI (mGy) COMPARISON: No prior exams available for comparison. TECHNIQUE: Multiple contiguous axial images were obtained through the abdomen and pelvis following b olus infusion of 95ML ml Omnipaque 350 (iohexol) nonionic water-soluble contrast as a single exam d ose. Prescribed oral contrast ingested. Using automated exposure control and adjustment of the mA an d/or kV according to patient size, radiation dose was kept as low as reasonably achievable to obtain optimal diagnostic quality images. DICOM format image data is available electronically for review an d comparison. FINDINGS: Lower Lungs: The visualized lower lungs are clear. Liver: The liver has a homogeneous density without space-occupying lesion. There is no dilation of th e biliary tree. Gallbladder grossly unremarkable. Spleen: Homogeneous density without enlargement. Pancreas: Unremarkable without mass or calcification. Kidneys: Normal in size and shape. No evidence of mass or hydronephrosis. Adrenal Glands: Unremarkable. Aorta: Atherosclerotic changes. No aneurysmal dictation. Bowel/Mesentery: The bowel loops are grossly unremarkable. The cecum and sigmoid colon have a normal configuration. The appendix is unremarkable. There is some scattered diverticula along the descendin g and sigmoid colon without definite inflammatory changes. No free fluid or free air. Abdominal Wall: Intact. Retroperitoneum: No evidence of adenopathy in the retrocrural, para-aortic, or deep pelvic regions. Bladder: Contours are smooth. Reproductive Organs: The prostate measures 5.5 cm. Inguinal: The inguinal region is unremarkable without evidence of adenopathy. Bony Structures: Primary bony degenerative changes. There is a left hip prosthesis in place. There i s some chronic wedge compression of L1. CONCLUSION: 1. Scattered diverticulosis of the descending and sigmoid colon without inflammatory changes. 2. Diffuse enlargement of the prostate gland 5.5 cm. 3. No acute abdominal or pelvic pathology. Electronically signed by: Zay Verma MD 08/30/2018 2:26 PM EDT
[2018-08-30 16:06] VITALS: BP 156/96; O2SAT 97
--- NOTE | 2018-08-30 16:34 | P.PNID ---
Subjective Remarks: UA negative CT A/P negative for acute pathology Pt adamant about leaving He is afebrile No c/o any pain or any other c/o Antibiotics: CFTX Allergies/Adverse Reactions: Allergies aspirin Allergy (Intermediate, Verified 08/27/18 01:38) Wheezing Objective Vital Signs 08/29/18 19:32 08/29/18 23:05 08/30/18 00:56 Temperature 99.3 F 98.6 F Pulse Rate 97 H 79 75 Respiratory Rate 18 18 18 Blood Pressure 151/97 H 176/98 H 146/83 H Pulse Oximetry 96 98 95 08/30/18 04:00 08/30/18 07:29 08/30/18 11:39 Temperature 97.7 F 98.1 F Pulse Rate 73 78 80 Respiratory Rate 18 16 16 Blood Pressure 137/89 142/86 H 147/90 H Pulse Oximetry 96 95 95 08/30/18 12:00 08/30/18 16:00 Temperature Pulse Rate 80 80 Respiratory Rate 16 16 Blood Pressure 140/90 156/96 H Pulse Oximetry 98 97 Intake & Output 08/29/18 08/30/18 08/30/18 18:59 06:59 18:59 Intake Total 2100 / 2100 650 / 650 2850 / 2850 Balance 2100 / 2100 650 / 650 2850 / 2850 Intake: IV 2100 / 2100 650 / 650 1700 / 1700 NS Inj 1,000 ML @ 125 mls/hr IV 2000 / 2000 300 / 300 1700 / 1700 .CONT .Q8H JEANNE Rx#:[id number] Azithromycin Inj 500 MG In NS 250 / 250 Inj 250 ML @ 250 mls/hr IV.SIG Q24H JEANNE Rx#:[id number] Rocephin Inj 1,000 MG In NS Inj 100 / 100 100 / 100 100 ML @ 200 mls/hr IV.SIG Q24H JEANNE Rx#:[id number] Oral 120 / 120 Other 1030 / 1030 Other: Other Intake Source Saline Solution # Voids 1 3 08/28/18 08:30 Blood - Peripheral Aerobic Blood Culture - Preliminary No growth in 2 days 08/28/18 08:30 Blood - Peripheral Anaerobic Blood Culture - Preliminary No growth in 2 days 08/28/18 08:24 Blood - Peripheral Aerobic Blood Culture - Preliminary No growth in 2 days 08/28/18 08:24 Blood - Peripheral Anaerobic Blood Culture - Preliminary No growth in 2 days 08/27/18 05:05 Blood - Peripheral Aerobic Blood Culture - Preliminary No growth in 3 days 08/27/18 05:05 Blood - Peripheral Anaerobic Blood Culture - Preliminary No growth in 3 days 08/27/18 04:55 Blood - Peripheral Aerobic Blood Culture - Preliminary No growth in 3 days 08/27/18 04:55 Blood - Peripheral Anaerobic Blood Culture - Final Enterobacter cloacae 08/27/18 13:45 Sputum - Expectorated Sputum Gram Stain - Final 08/27/18 13:45 Sputum - Expectorated Sputum Sputum Culture - Final Heavy growth normal respiratory mary 08/27/18 13:45 Nasal Wash Influenza Types A,B Antigen - Final Negative for FLU A and B antigen Infection due to influenza A or B cannot be ruled out since the antigen present in the sample may be below the detection limit of the test. Lab - Chemistry Results 08/28/18 08/28/18 08/28/18 17:01 21:53 23:12 POC Glucose 200 H 235 H 203 H 08/29/18 08/29/18 08/29/18 04:04 07:52 12:18 POC Glucose 218 H 190 H 176 H 08/29/18 08/29/18 08/30/18 17:51 22:38 02:37 POC Glucose 131 H 182 H 203 H 08/30/18 08/30/18 07:46 12:40 POC Glucose 174 H 156 H Imaging: ITS Impressions Chest X-Ray 08/27/18 01:51 CONCLUSION: 1. Patchy right inferior perihilar opacities which may reflect developing airspace disease in the appropriate clinical setting.h Abdomen/Pelvis CT 08/30/18 00:00 CONCLUSION: 1. Scattered diverticulosis of the descending and sigmoid colon without inflammatory changes. 2. Diffuse enlargement of the prostate gland 5.5 cm. 3. No acute abdominal or pelvic pathology. Physical Exam: GENERAL: NAD. SKIN: Warm and dry. HEAD: Atraumatic. Normocephalic. EYES: Pupils equal and round. No scleral icterus. No injection or drainage. ENT: No nasal bleeding or discharge. Mucous membranes pink and moist. NECK: Trachea midline. CARDIOVASCULAR: Regular rate and rhythm. RESPIRATORY: No accessory muscle use. Clear to auscultation. Breath sounds equal bilaterally. GASTROINTESTINAL: Abdomen soft, non-tender, nondistended. Hepatic and splenic margins not palpable. MUSCULOSKELETAL: Extremities without clubbing, cyanosis, or edema. NEUROLOGICAL: Awake and alert. No obvious cranial nerve deficits. Motor grossly within normal limits. Normal speech. PSYCHIATRIC: Appropriate mood and affect; insight and judgment normal. Assessment and Plan - Plan Low grade Enterobacter bacteremia in settings of clinical symptomsd and findings cw sepsis (pt with fever, shking chills, lactic acidosis on presentation) ? PNA Patchy infiltrate, thouhg no typical presentation of PNA Gram negative bacteremia is not a contaminant and usually requires establishement of source. Typically GI/ Prostate enlargment Rec's: switch CFTX to PO LEvaquin 750 mg daily cont abx x 7 more days to complete 10 days of abx Fu with urologist as o/p : enlarged prostate, symptomatic OK to d/c pt home today caitie Mantilla
--- NOTE | 2018-08-30 16:46 | P.DS ---
Date of admission: 08/27/18 05:12 Primary care physician: [facility] Anticipated date of discharge: 08/30/18 Brief History from admission: 62-year-old male with history of asthma, DM, HTN, HLD, chronic back pain, presents with acute onset 1 day history of malaise, weakness, cough, nausea/ vomiting, and diarrhea. Patient states he was in his normal state of health yesterday, when all of a sudden at 7:30 PM last night he started to develop significant malaise, fatigue, and uncontrollable chills. He then developed multiple episodes of nausea/vomiting and nonbloody diarrhea x5. Denies any significant abdominal pain. He also reports a recent dry mostly nonproductive cough, associated with shortness of breath and occasional wheezing. He states his took his temperature and it was as low as [id number]. Around midnight, patient agreed to come to the ER. Chest x-ray was significant for pneumonia. He was started on antibiotics. He is now seen in the observation unit, symptoms significantly improved however still feels weak. He does not feel ready for discharge at this time. He denies any other medical complaints including no rhinitis, odynophagia, chest pain, palpitations, or urinary complaints. DS: Diagnosis - Discharge Diagnosis (1) Pneumonia Status: Acute (2) Gastroenteritis Status: Acute DS: Medications - Discharge Medications Prescriptions: levofloxacin 750 mg PO DAILY 7 Days #7 tab DS: Summary Hospital Course: 62-year-old male with history of asthma, DM, HTN, HLD, chronic back pain, presents with acute onset 1 day history of malaise, weakness, cough, nausea/ vomiting, and diarrhea. Sepsis with community-acquired pneumonia: Acute. Meets sepsis criteria with tachycardia and tachypnea, with suspected sourcepneumonia. CXR reviewed, shows patchy right inferior perihilar opacities. Tachycardic, HR 140, tachypneic RR 28 , temp 99.4, WBC 10 K. Influenza negative. Sputum culture with heavy growth normal respiratory mary. Given antibiotics with IV Rocephin/azithromycin. Duo nebs every 6 hours. Symptoms much improved, sepsis resolved, afebrile, stable for discharge. ID cleared for discharge on Levaquin x7days. + Enterobacter bacteremia: Patient with initial 1 out of 4 blood cultures positive for Enterobacter cloacae, pansensitive. Repeat blood cultures collected with no growth to date. Continued on antibiotics as above. Final blood culture with 1/4 positive for Enterobacter cloacae and repeat blood cultures remained negative. Consulted infectious disease, unclear source, UA negative and CT abd/pelvis negative. ID cleared for discharge on Levaquin 750mg po qd x7days for pneumonia. Acute gastroenteritis: Suspect viral. Patient does not recall eating anything out of the ordinary or any sick contacts. Given supportive treatment with IV fluid hydration, antiemetics as needed. Ordered stool studies if any recurrent diarrhea, however diarrhea resolved. Symptoms currently resolved, tolerating oral intake. EZ: Creatinine 1.33, suspect secondary to dehydration with GI losses from vomiting/diarrhea. Given IV fluid hydration. Avoid nephrotoxins. Repeat BMP shows improvement with creatinine 0.87, resolved. Diabetes mellitus: Chronic. Holding patient's metformin for now. Monitor Accu- Cheks and cover with sliding scale insulin, increase to medium dose. Diabetic diet. Outpatient follow up. HTN/HLD: Chronic. Continued patient's lisinopril 10mg daily. Stable. Chronic back pain: Chronic. Continue patient's Flexeril as needed. [place] prn. Outpatient f/up. - Time Spent with Patient Total time spent providing and/or coordinating discharge services: Greater than 30 minutes - Quality: VTE Deep Vein Thrombosis/Pulmonary Embolism Present on Admission: No Exam Vital signs: Vital Signs 08/29/18 19:32 08/29/18 23:05 08/30/18 00:56 Temperature 99.3 F 98.6 F Pulse Rate 97 H 79 75 Respiratory Rate 18 18 18 Blood Pressure 151/97 H 176/98 H 146/83 H Pulse Oximetry 96 98 95 08/30/18 04:00 08/30/18 07:29 08/30/18 11:39 Temperature 97.7 F 98.1 F Pulse Rate 73 78 80 Respiratory Rate 18 16 16 Blood Pressure 137/89 142/86 H 147/90 H Pulse Oximetry 96 95 95 08/30/18 12:00 08/30/18 16:00 Temperature Pulse Rate 80 80 Respiratory Rate 16 16 Blood Pressure 140/90 156/96 H Pulse Oximetry 98 97 Intake & Output 08/29/18 08/30/18 08/30/18 18:59 06:59 18:59 Intake Total 2100 / 2100 650 / 650 2850 / 2850 Balance 2100 / 2099 650 / 650 2850 / 2850 Intake: IV 2099 / 2099 650 / 650 1700 / 1700 NS Inj 1,000 ML @ 125 mls/hr IV 2000 / 2000 300 / 300 1700 / 1700 .CONT .Q8H JEANNE Rx#:[id number] Azithromycin Inj 500 MG In NS 250 / 250 Inj 250 ML @ 250 mls/hr IV.SIG Q24H JEANNE Rx#:[id number] Rocephin Inj 1,000 MG In NS Inj 100 / 100 100 / 100 100 ML @ 200 mls/hr IV.SIG Q24H JEANNE Rx#:[id number] Oral 120 / 120 Other 1030 / 1030 Other: Other Intake Source Saline Solution # Voids 1 3 Narrative: GENERAL: Well-nourished, well-developed pleasant middle-age male patient in [facility]. SKIN: Warm and dry. No rash. HEENT: Normocephalic. Atraumatic. Pupils equal and round. Mucous membranes pink and moist. CARDIOVASCULAR: Regular rate and rhythm. No murmur appreciated. RESPIRATORY: No accessory muscle use. Clear to auscultation. Breath sounds equal bilaterally. GASTROINTESTINAL: Abdomen soft, non-tender, nondistended. Normoactive bowel sounds x4. MUSCULOSKELETAL: No obvious deformities. Extremities without clubbing, cyanosis , or edema. NEUROLOGICAL: Awake and alert. No obvious cranial nerve deficits. Motor grossly within normal limits. Moving all extremities spontaneously. Normal speech. PSYCHIATRIC: Appropriate mood and affect; insight and judgment normal. Results Procedures completed during hospitalization: None. Labs on day of discharge: Labs from last 24 hours 08/30/18 08/30/18 08/30/18 12:40 07:46 02:37 POC Glucose 156 H 174 H 203 H Urine Color Urine Clarity Urine pH Ur Specific [place] Urine Protein Urine Glucose (UA) Urine Ketones Urine Occult Blood Urine Nitrate Urine Bilirubin Urine Urobilinogen Ur Leukocyte Esterase Urine WBC Micro UA Comment Ur Microscopic Review Urine Culture Comments 08/29/18 08/29/18 08/29/18 22:38 18:10 17:51 POC Glucose 182 H 131 H Urine Color Straw Urine Clarity Clear Urine pH 7.0 Ur Specific [place] 1.006 Urine Protein Negative Urine Glucose (UA) 50 Urine Ketones Negative Urine Occult Blood Negative Urine Nitrate Negative Urine Bilirubin Negative Urine Urobilinogen Less than 2 Ur Leukocyte Esterase Negative Urine WBC 1 Micro UA Comment Culture not ind Ur Microscopic Review Not Reportable Urine Culture Comments Culture not ind Preliminary micro results at discharge 08/28/18 08:30 Aerobic Blood Culture - Preliminary Blood - Peripheral No growth in 2 days Anaerobic Blood Culture - Preliminary No growth in 2 days 08/28/18 08:24 Aerobic Blood Culture - Preliminary Blood - Peripheral No growth in 2 days Anaerobic Blood Culture - Preliminary No growth in 2 days 08/27/18 05:05 Aerobic Blood Culture - Preliminary Blood - Peripheral No growth in 3 days Anaerobic Blood Culture - Preliminary No growth in 3 days 08/27/18 04:55 Aerobic Blood Culture - Preliminary Blood - Peripheral No growth in 3 days - Impressions ITS Impressions Chest X-Ray 08/27/18 01:51 CONCLUSION: 1. Patchy right inferior perihilar opacities which may reflect developing airspace disease in the appropriate clinical setting.h Abdomen/Pelvis CT 08/30/18 00:00 CONCLUSION: 1. Scattered diverticulosis of the descending and sigmoid colon without inflammatory changes. 2. Diffuse enlargement of the prostate gland 5.5 cm. 3. No acute abdominal or pelvic pathology. Discharge Plan - Discharge Disposition Patient Disposition: Discharge Home - Discharge Condition Condition: Stable - Discharge Order Discharge Orders: Discharge Order (Routine); Ordered 08/30/18 Ordered By: Harini March - Discharge Details Anticipated Discharge Date: 08/30/18 - Physicians Team Primary Care Provider: [facility] Attending Provider: Mulu Martinez Other Providers: Janell Sarah MD
== END 2018-08-30 19:07 | disposition home or self-care (01) ==
LOC: NEPE 01:31 → NEDA 04:59 → INTOOBSV 04:59 → NEPHCDU 06:38
PROVIDERS: ADMIT Internal Medicine; ATTEND Internal Medicine